=== PATIENT | female | born 1985 | race African-American/Black ===

== ENCOUNTER 2019-03-19 23:54 | Emergency (ER) | payer SELFPAY ==
[~2019-03-19] VITALS: Ht 170.2 cm; Wt 56.7 kg
[2019-03-20 00:11] VITALS: BP 118/71
== END 2019-03-20 02:10 | disposition left against medical advice (07) ==
LOC: ER 23:54
DX: M79.10 Myalgia, unspecified site (principal); Z53.21 Procedure and treatment not carried out due to patient leaving prior to being seen by health care provider